=== PATIENT | female | born 1955 | race Caucasian/White ===

== ENCOUNTER 2017-11-26 10:49 | Emergency (ER) | payer SELFPAY ==
[2017-11-26 11:36] LABS: #Basophils 0.1 thou/uL (0.0-0.2); #Eosinphils 0.2 thou/uL (0.0-0.7); #Lymphocytes 1.5 thou/uL (1.20-3.40); #Neutrophils 8.2 thou/uL (1.40-6.50); %Basophils 0.7 % (0.0-1.0); %Eosinophils 1.8 % (0.0-10.0); %Lymphocytes 13.7 % (21.0-51.0); %Monocytes 8.9 % (0.0-10.0); %Neutrophils 74.9 % (42.0-75.0); Hemoglobin 13.2 g/dL (12.0-16.0); Mean Corpuscular HGB CONC 33.2 g/dL (32.0-36.0); Mean Corpuscular Volume 93.3 fl (81.0-99.0); Mean Platelet Volume 8.3 fL (7.4-10.4); Platelet Count 292 thou/uL (130-400); RBC Distribution Width 12.4 % (11.5-14.5); Red Blood Cell (RBC) Count 4.24 mill/uL (4.20-5.40); White Blood Cell (WBC) Count 10.9 thou/uL (4.8-10.8)
[2017-11-26 12:00] LABS: ALT (SGPT) 8 U/L (8-55); AST (SGOT) 16 U/L (5-34); Alkaline Phosphatase 114 U/L (40-150); Anion Gap 18 mmol/L (10-20); BUN (Urea Nitrogen) 9 mg/dL (9.8-20.1); Bilirubin, Total 0.2 mg/dL (0.2-1.2); CK (CPK) 62 U/L (29-168); Calc. Creatinine Clearance 0 mL/min (70-130); Calcium 9.8 mg/dL (7.8-10.44); Carbon Dioxide 21 mmol/L (22-29); Chloride 103 mmol/L (98-107); Estimated GFR-MDRD 79; Globulin 3.8 g/dL (2.4-3.5); Glucose 95 mg/dL (70-105); Potassium 3.2 mmol/L (3.5-5.1); Protein, Total 7.8 g/dL (6.0-8.3); Sodium 139 mmol/L (136-145)
[2017-11-26 12:04] LABS: CKMB 1.9 ng/mL (0-6.6); Troponin I Less than 0.010 ng/mL (< 0.028)
[2017-11-26] MEDS ORDERED: Morphine 2 MG/ML SYRINGE ONE (12:28)
--- NOTE | 2017-11-26 12:43 | RAD ---
RADIOGRAPH CHEST 1 VIEW: HISTORY: A 62-year-old female with dyspnea. FINDINGS: There is hyperinflation of the lungs, consistent with COPD. There is no evidence of air space densit y, pneumothorax, or pulmonary edema. The lateral costophrenic angles are sharp. The cardiomediastin al silhouette is normal. IMPRESSION: 1) No acute pulmonary findings. 2) Emphysema. shell [] POS: RODNEY
[2017-11-26] MEDS ORDERED: Ondansetron HCl/PF 4 MG/2 ML Vial ONE ×2 (12:51→15:44)
--- NOTE | 2017-11-26 13:40 | CT ---
CT OF THE THORAX WITH IV CONTRAST: INDICATION: History of posterior right rib mass. FINDINGS: There is a healing right posterior 10th rib fracture. There are healing suspected posterior 9th and 10th rib fractures. There is also a nondisplaced healing right posterolateral 8th rib fracture. No additional acute osseous abnormality is evident. There are healed lateral left 9th and posterolat eral left 10th rib fractures. There is emphysematous change. There is calcified granuloma within the right middle lobe. Calcified lymph nodes within the right hilar region. IMPRESSION: 1. Healing right 8th through 10th rib fractures seen posterolateral and posteriorly. 2. Emphysema. 3. Findings of prior granulomatous disease. POS: H
[2017-11-26] MEDS ORDERED: ISOVUE-370 76%-LOCM 1 ML ONE (14:41)
[2017-11-26 15:30] LABS: Troponin I Less than 0.010 ng/mL (< 0.028)
== END 2017-11-26 16:29 | disposition home or self-care (01) ==
LOC: ERS 10:49
DX: J43.9 Emphysema, unspecified (principal); S22.41XD Multiple fractures of ribs, right side, subsequent encounter for fracture with routine healing; I10 Essential (primary) hypertension; E87.6 Hypokalemia; F17.210 Nicotine dependence, cigarettes, uncomplicated; Z79.899 Other long term (current) drug therapy
CPT/HCPCS: 36415; 71045; 71260; 80053; 82553; 84484; 85025; 93005; 94760; 96374; 96375; 96376; 99406; J2270; J2405

== ENCOUNTER 2019-09-01 13:01 | Emergency (ER) | payer SELFPAY ==
[2019-09-01] MEDS ORDERED: predniSONE 20 MG TAB ONE (14:45)
--- NOTE | 2019-09-01 15:07 | RAD ---
EXAM: Single view of the chest HISTORY: Cough for one week COMPARISON: 11/26/2017 FINDINGS: Single view of the chest shows a normal sized cardiomediastinal silhouette. Increased inte rstitial markings are present. There is no evidence of consolidation, mass, or pleural effusion. The bones are unremarkable. IMPRESSION: No evidence of acute cardiopulmonary disease
== END 2019-09-01 15:15 | disposition home or self-care (01) ==
LOC: ERS 13:01
DX: J44.1 Chronic obstructive pulmonary disease with (acute) exacerbation (principal); I10 Essential (primary) hypertension; F32.9 Major depressive disorder, single episode, unspecified; F17.210 Nicotine dependence, cigarettes, uncomplicated; Z79.51 Long term (current) use of inhaled steroids; Z79.899 Other long term (current) drug therapy; Z86.73 Personal history of transient ischemic attack (TIA), and cerebral infarction without residual deficits
CPT/HCPCS: 71045; 94640; J7512; J7620